=== PATIENT | female | born 1990 | race African-American/Black ===

== ENCOUNTER 2021-10-15 01:01 | Emergency (ER) | payer SELFPAY ==
[~2021-10-15] VITALS: Ht 162.6 cm; Wt 64.0 kg
[2021-10-15 03:49] LABS: CLARITY URINE CLEAR (CLEAR); COLOR URINE YELLOW (YELLOW); KETONES URINE NEGATIVE (NEGATIVE); LEUKOCYTE ESTERASE URINE NEGATIVE (NEGATIVE); NITRITE URINE NEGATIVE (NEGATIVE); OCCULT BLOOD URINE NEGATIVE (NEGATIVE); PROTEIN URINE NEGATIVE (NEGATIVE); UROBILINOGEN URINE 0.2 E.U./dL (0.2-1.0)
[2021-10-15 04:48] VITALS: BP 110/67
[2021-10-15] MEDS ORDERED: DOXY100C5 MT (11:36)
[2021-10-15] MEDS ORDERED: METR500T MT (11:36)
[2021-10-15] MEDS ORDERED: IBUP-2029 MT (11:36)
== END 2021-10-15 04:51 | disposition left against medical advice (07) ==
LOC: ER 01:32
DX: R10.2 Pelvic and perineal pain (principal); Z88.0 Allergy status to penicillin; Z53.21 Procedure and treatment not carried out due to patient leaving prior to being seen by health care provider
CPT/HCPCS: 76830; 76856; 81003; 81025; 87210; 99284

== ENCOUNTER 2021-10-15 08:49 | Emergency (ER) | payer OTHER ==
[~2021-10-15] VITALS: Ht 162.6 cm; Wt 63.0 kg
[2021-10-15 10:18] LABS: BASOPHILS % 1.4 % (0.0-2.0); EOSINOPHILS % 0.7 % (0.0-5.0); HEMATOCRIT. 37.1 % (36.0-48.0); HEMOGLOBIN. 12.3 g/dL (12.0-16.0); LYMPHOCYTES % 35.7 % (20.0-50.0); MEAN CORPUSCULAR HEMOGLOBIN 28.5 pg (28.0-32.0); MEAN CORPUSCULAR VOLUME 85.7 fL (81.0-99.0); MEAN PLATELET VOLUME 8.8 fl (7.4-10.4); MONOCYTES % 6.9 % (2.0-8.0); NEUTROPHILS % 55.3 % (40.0-76.0); PLATELET 282 x1000/uL (130-400); RED BLOOD CELL COUNT 4.33 mill/uL (4.2-5.4); RED CELL DISTRIBUTION WIDTH 13.4 % (11.6-14.6)
[2021-10-15 10:26] LABS: CHLORIDE 107 mEq/L (98-107)
[2021-10-15] MEDS ORDERED: METR500T MT (11:36)
[2021-10-15] MEDS ORDERED: IBUP-2029 MT (11:36)
[2021-10-15] MEDS ORDERED: DOXY100C5 MT (11:36)
[2021-10-15] MEDS ORDERED: LIDOCAINE HCL 1% 20ML VIAL (Pyxis) INJ INFIL ONE (11:45)
[2021-10-15] MEDS ORDERED: CEFTRIAXONE SODIUM 500 MG/VIAL IM ONE (11:45)
[2021-10-15 11:53] VITALS: BP 119/77
[2021-10-18 07:11] LABS: NEISSERIA GONORRHOEAE NAA Negative (Negative)
== END 2021-10-15 11:57 | disposition home or self-care (01) ==
LOC: ER 08:49
DX: D25.9 Leiomyoma of uterus, unspecified (principal); R58 Hemorrhage, not elsewhere classified; N83.201 Unspecified ovarian cyst, right side; Z88.0 Allergy status to penicillin; Z91.018 Allergy to other foods
CPT/HCPCS: 36415; 80053; 85025; 87491; 87591; 96372; 99284; J0696; J3490